=== PATIENT | male | born 1960 | race Caucasian/White ===

== ENCOUNTER → 2021-06-27 | Outpatient (CLI) | payer BC, MEDICARE ==
--- NOTE | 2021-06-27 12:27 | XR ---
Left knee HISTORY: Left knee pain 2 views of left knee correlated prior exam 04/25/2016 Marginal spurring is present in the medial compartment with some joint space loss. Marginal spurring again noted the patellofemoral joint. Suprapatellar increased density may represent a small joint eff usion. Alignment is maintained. Calcification present along the patellar tendon near the insertion sh ows a similar appearance, is a somewhat fragmented well-corticated bone conglomeration. Question some chondrocalcinosis. IMPRESSION: Osteoarthritis, consider crystal deposition arthropathy, additional findings above, findi ngs similar to prior exam. Possible joint effusion.
--- NOTE | 2021-06-27 12:32 | XR ---
right Shoulder HISTORY: Right shoulder pain 2 views of the right shoulder There is arthropathy change of the common clavicular joint, the right humeral head shows a sclerotic appearance with subchondral geode formation suspected, there is remodeling present with sclerosis pre sent at the bony labrum, hypertrophic change of the humeral head medially. No evident fracture or dis location. Right lung apex as visualized is normal. IMPRESSION: Arthropathy change as described. These could represent crystal deposition arthropathy rat her than osteoarthritis.
== END | disposition home or self-care (01) ==
LOC: RADXRMAIN 10:10
PROVIDERS: ATTEND Internal Medicine
DX: M17.12 Unilateral primary osteoarthritis, left knee (principal); M19.011 Primary osteoarthritis, right shoulder

== ENCOUNTER → 2021-12-11 | Outpatient (CLI) | payer BC, MEDICARE ==
--- NOTE | 2021-12-12 02:58 | MR ---
EXAMINATION TYPE: MR knee LT wo con DATE OF EXAM: 12/11/2021 COMPARISON: None HISTORY: Left knee pain. Multiplanar multiecho imaging of the left knee without contrast. There is knee joint effusion. The anterior and posterior cruciate ligaments are intact. There is hype rtrophic spurring of the femoral and tibial condyles. There is mild lateral joint space narrowing. Th e collateral ligaments are intact. There is small cortical defect in the anterior and posterior horns of the lateral meniscus extending to the inferior surface. The medial meniscus appears fairly normal. There is no evidence of a fractur e. I see no bony destructive process. Patella is intact. IMPRESSION: No evidence of ligament tear. Small vertical tears of the anterior and posterior horns of the lateral meniscus. Mild osteoarthritis. Moderate knee joint effusion.
== END | disposition home or self-care (01) ==
LOC: RADMRIMAIN 18:57
PROVIDERS: ATTEND Orthopaedic Surgery
DX: M17.12 Unilateral primary osteoarthritis, left knee (principal); M23.352 Other meniscus derangements, posterior horn of lateral meniscus, left knee

== ENCOUNTER → 2023-01-30 | Outpatient (CLI) | payer BC, MEDICARE ==
--- NOTE | 2023-01-30 10:29 | XR ---
EXAM TYPE: LUMBAR SPINE X RAY SERIES COMPARISON: 07/14/2015 HISTORY: Low back pain TECHNIQUE: 4 views are submitted. FINDINGS: Alignment is anatomic. The pedicles are intact. The transverse processes are intact. Chronic appea ring mild wedge deformity L1 and superior endplate deformity L3. There is multilevel moderate to shelby re degenerative disc disease with grade 1 anterolisthesis L4 on L5 and L5 and S1. Multilevel severe f acet arthropathy. IMPRESSION: 1. Multilevel severe degenerative disc disease and facet arthropathy and grade 1 anterolisthesis of L 4 on L5 and L5 on S1. Retrolisthesis of L2 to relative to L3. 2. There mild compression deformities of L1 and L3 of indeterminate age likely chronic. Correlate cli nically.
== END | disposition home or self-care (01) ==
LOC: LABWHC1 09:42
PROVIDERS: ATTEND Physical Medicine & Rehabilitation
DX: M43.16 Spondylolisthesis, lumbar region (principal); M47.816 Spondylosis without myelopathy or radiculopathy, lumbar region; M51.36 Other intervertebral disc degeneration, lumbar region; M48.56XA Collapsed vertebra, not elsewhere classified, lumbar region, initial encounter for fracture
CPT/HCPCS: 72110

== ENCOUNTER 2024-02-21 11:17 | Emergency (ER) | payer BC, MEDICARE ==
[2024-02-21 11:25] VITALS: RESP 18; TEMP 98.2
--- NOTE | 2024-02-21 12:07 | ED ---
Fall HPI - General Chief Complaint: Extremity Injury, Lower Stated Complaint: Fall, Right knee injury Time Seen by Provider: 02/21/24 11:42 Source: patient, RN notes reviewed Mode of arrival: ambulatory Limitations: no limitations - History of Present Illness Initial Comments: This is a 63-year-old male who presents to the emergency department for a fall. Patient states that last night he went to step over his dog and his dog stood up causing him to fall. He fell on his right knee and then went into a wall, injuring his back. He has developed bruising over the right lower back. Also states that his knee appears swollen and is having difficulty ambulating and moving the leg. He tried taking ibuprofen without relief in symptoms. MD Complaint: fall - Related Data Home Medications Medication Instructions Recorded Confirmed lisinopriL 30 mg PO DAILY 03/21/15 02/21/24 Omeprazole [PriLOSEC] 20 mg PO DAILY 02/21/24 02/21/24 Simvastatin [Zocor] 40 mg PO DAILY 02/21/24 02/21/24 atenoloL [Tenormin] 50 mg PO DAILY 02/21/24 02/21/24 tadalafiL [Cialis] 5 mg PO DAILY 02/21/24 02/21/24 tiZANidine [Zanaflex] 4 mg PO Q8HR PRN 02/21/24 02/21/24 Previous Rx's Medication Instructions Recorded HYDROcodone/APAP 5-325MG [[place] 1 tab PO Q6HR PRN 3 Days #12 tab 02/21/24 5-325] Lidocaine 5% Patch [Lidoderm 5% 1 patch TOPICAL DAILY PRN #30 patch 02/21/24 Patch] Naproxen Sodium 550 mg PO BID PRN #30 tablet 02/21/24 Allergies Allergy/AdvReac Type Severity Reaction Status Date / Time No Known Allergies Allergy Verified 02/21/24 12:06 Review of Systems ROS Statement: Those systems with pertinent positive or pertinent negative responses have been documented in the HPI. ROS Other: All systems not noted in ROS Statement are negative. Past Medical History Past Medical History: Hyperlipidemia, Hypertension, Osteoarthritis (OA), Rheumatoid Arthritis (RA) Additional Past Medical History / Comment(s): fractured back History of Any Multi-Drug Resistant Organisms: None Reported Past Surgical History: Joint Replacement, Orthopedic Surgery Additional Past Surgical History / Comment(s): hips and knees Past Psychological History: Anxiety, Depression Smoking Status: Never smoker Past Alcohol Use History: None Reported Past Drug Use History: None Reported General Exam Limitations: no limitations General appearance: alert, in no apparent distress Head exam: Present: atraumatic, normocephalic, normal inspection Respiratory exam: Present: normal lung sounds bilaterally. Absent: respiratory distress, wheezes, rales, rhonchi, stridor Cardiovascular Exam: Present: regular rate, normal rhythm, normal heart sounds. Absent: systolic murmur, diastolic murmur, rubs, gallop, clicks Extremities exam: Present: other (Swelling and tenderness to the right knee. Range of motion limited by pain. 2+ DP and PT pulses.) Back exam: Present: other (Swelling, ecchymosis, and tenderness to the right lower back) Neurological exam: Present: alert, oriented X3, CN II-XII intact Psychiatric exam: Present: normal affect, normal mood Course Vital Signs 02/21/24 02/21/24 02/21/24 11:19 13:57 15:32 Temperature 98.2 F Pulse Rate 57 L 50 L 55 L Respiratory 18 18 18 Rate Blood Pressure 193/86 175/90 180/90 O2 Sat by Pulse 97 99 99 Oximetry Medical Decision Making - Medical Decision Making This is a 63-year-old male who presents to the emergency department for right knee pain and lower back pain after a fall. Was pt. sent in by a medical professional or institution? @ -No Did you speak to anyone other than the patient for history? @ -No Did you review nursing and triage notes? @ -Yes, and I agree, it is accurate with regards to the patient's symptoms. Were old charts reviewed? @ -No Differential Diagnosis? @ -Differential Musculoskeletal: Muscular strain, contusion, ligament sprain, fracture, arthritis, septic arthritis, bursitis, cellulitis, muscle spasm, nerve compression, DVT, arterial occlusion, herpes zoster, electrolyte abnormality, tumor.... This is not meant to be in all inclusive list EKG interpreted by me (3pts min.)? @ -Not obtained X-rays interpreted by me (1pt min.)? @ -X-ray of the right knee obtained. My interpretation identifies no acute fractures. CT interpreted by me (1pt min.)? @ -CT scan of the lumbar spine obtained. My interpretation identifies no acute fractures. U/S interpreted by me (1pt. min.)? @ -None What testing was considered but not performed? (CT, X-rays, U/S, labs)? Why? @ -None What meds were considered but not given? Why? @ -None Did you discuss the management of the patient with other professionals? @ -No Did you reconcile home meds? @ -No Was smoking cessation discussed for >3mins.? @ -No Was critical care preformed (if so, how long)? @ -No Were there social determinants of health that impacted care today? How? (Homelessness, low income, unemployed, alcoholism, drug addiction, transportation, low edu. Level, literacy, decrease access to med. care, intermediate, rehab)? @ -No Was there de-escalation of care discussed even if they declined? (Discuss DNR or withdrawal of care, Hospice)? @ -No What co-morbidities impacted this encounter? (DM, HTN, Smoking, COPD, CAD, Cancer, CVA, Hep., AIDS, mental health diagnosis, sleep apnea, morbid obesity)? @ -Osteoarthritis, rheumatoid arthritis Was patient admitted / discharged? @ -Discharged. X-ray of the right knee and CT scan of the lumbar spine obtained revealing no acute process. Symptoms managed in the emergency department. Prescription for naproxen, [place], and lidocaine patches provided with dosing instructions reviewed. Otherwise advised follow-up with his primary care provider. Undiagnosed new problem with uncertain prognosis? @ -None Drug Therapy requiring intensive monitoring for toxicity (Heparin, Nitro, Insulin, Cardizem)? @ -None Were any procedures done? @ -None Diagnosis/symptom? @ -Fall, right knee pain, low back pain Acute, or Chronic, or Acute on Chronic? @ -Acute Uncomplicated (without systemic symptoms) or Complicated (systemic symptoms)? @ -Uncomplicated Side effects of treatment? @ -None Exacerbation, Progression, or Severe Exacerbation] @ -Not applicable Poses a threat to life or bodily function? @ -No Return precautions reviewed in depth, the patient is instructed to return to the emergency department with any new, worsening, or concerning symptoms. Patient verbalized understanding. This case was discussed in detail with the attending ED physician, Dr. Riggs. Presentation, findings, and treatment plan discussed in detail as well. - Radiology Data Radiology results: report reviewed, image reviewed Disposition Clinical Impression: Fall, Back pain, Right knee pain Disposition: HOME SELF-CARE Instructions (If sedation given, give patient instructions): Back Pain (ED) Additional Instructions: Return to the emergency department with any new, worsening, or concerning symptoms. Take the Naproxen twice daily as needed with Tylenol. Take the [place] sparingly when your pain is the most severe. You can also apply the lidocaine patches daily. Follow up with your primary care provider in 1-2 days. Prescriptions: Lidocaine 5% Patch [Lidoderm 5% Patch] 1 patch TOPICAL DAILY PRN #30 patch PRN Reason: Pain Naproxen Sodium 550 mg PO BID PRN #30 tablet PRN Reason: Pain HYDROcodone/APAP 5-325MG [[place] 5-325] 1 tab PO Q6HR PRN 3 Days #12 tab PRN Reason: Pain Is patient prescribed a controlled substance at d/c from ED?: Yes When asked, does pt state using other controlled substances?: No If prescribed controlled substance>3 days was MAPS reviewed?: Prescribed <3 Days Referrals: Courtney Cantor MD [Primary Care Provider] - 1-2 days Time of Disposition: 15:15
[2024-02-21] MEDS: KETOROLAC 15 MG/ML 1 ML VIAL IVP STA (12:34)
[2024-02-21] MEDS: MORPHINE SULFATE 4 MG/ML SYRINGE IVP STA (12:35)
--- NOTE | 2024-02-21 12:37 | XR ---
EXAMINATION TYPE: XR knee complete RT DATE OF EXAM: 02/21/2024 12:00 PM CLINICAL INDICATION:Male, 63 years old with history of Fall; COMPARISON: None. TECHNIQUE: XR knee complete RT; examined in Frontal, lateral and oblique projections. FINDINGS: Status post total knee arthroplasty changes with hardware in appropriate alignment and in tact. No evidence of fracture. Large osteophytes/postsurgical change posterior to the tibia on latera l view. IMPRESSION: Status post total knee arthroplasty changes with hardware intact and appropriate alignment. No fractu res identified.
[2024-02-21] MEDS: HYDROmorphone 1 MG/ML 1 ML SYRINGE IVP STA (13:55)
--- NOTE | 2024-02-21 15:09 | CT ---
EXAMINATION TYPE: CT lumbar spine wo con DATE OF EXAM: 02/21/2024 12:16 PM COMPARISON: 05/04/2011 HISTORY: Fall, Hematoma CT DLP: 1220.4 mGycm Automated exposure control for dose reduction was used. Unenhanced CT of the lumbar spine was performed. Bone and soft tissue window settings are submitted as well as coronal and sagittal reconstructions. Technique: CT imaging of the spine with sagittal coronal reformats. FINDINGS:. Grade 1 anterolisthesis of L4 and L5. Severe degeneration changes throughout the spine wit h osteophyte formation and disc space narrowing. L1-L2: Severe degenerative disc disease with vacuum disc noted. Posterior disc bulges effacing ventra l thecal sac and mild central stenosis. L2-L3: Normal moderate to severe degenerative disc space narrowing and posterior disc bulge. Effaces the ventral thecal sac mild central stenosis without disc herniation. . L3-L4:Normal disc space height. No disc herniation protrusion or central stenosis. No facet joint a rthropathy. No evidence for foraminal encroachment. L4-L5: Normal disc space height. No disc herniation protrusion with mild central stenosis present. N o facet joint arthropathy. No evidence for foraminal encroachment. L5-S1: Moderate degenerative disc space narrowing without herniation of protrusion. No central stenos is. Right hip fixation hardware partially visualized and intact. IMPRESSION: 1. No evidence of spinal fracture. 2. No evidence for hematoma. 3. Multilevel degeneration disc disease cervical spine with varying degrees of spinal canal and neur al foraminal stenosis.
[2024-02-21 15:33] VITALS: BP 180/90; PULSE 55
== END 2024-02-21 15:33 | disposition home or self-care (01) ==
LOC: EC 11:17
DX: M25.561 Pain in right knee (principal); M48.061 Spinal stenosis, lumbar region without neurogenic claudication; M51.36 Other intervertebral disc degeneration, lumbar region; W18.30XA Fall on same level, unspecified, initial encounter
CPT/HCPCS: 73562; 72131; 99284; 96374; 96375 ×2; J2270; J1170; J1885

== ENCOUNTER 2025-03-17 15:51 | Emergency (ER) | payer BC, MEDICARE ==
--- NOTE | 2025-03-17 16:23 | ED ---
Wound/Laceration HPI - General Chief Complaint: Wound/Laceration Stated Complaint: L Arm Laceration Time Seen by Provider: 03/17/25 16:04 Source: patient, RN notes reviewed Mode of arrival: ambulatory Limitations: no limitations - History of Present Illness Initial Comments: This is a 64-year-old male with history including hypertension, hyperlipidemia, OA and RA presenting for left elbow laceration. Patient states he was walking his [email or web address] when they took off suddenly, pulling the leashes he was holding and thrusting him into foliage, lacerating his left elbow. Patient denies striking head, loss of consciousness, headache, neck pain, dizziness or any other significant injury. States he is unsure of tetanus vaccination status . Onset/Timin -: minutes(s) Location: face Extremity Location: Left: Elbow Place: outdoors Patient Tetanus UTD: No Context: accidental, fall Associated Symptoms: suspect foreign body present Treatments Prior to Arrival: bandage - Related Data Home Medications Medication Instructions Recorded Confirmed lisinopriL 30 mg PO DAILY 03/21/15 02/21/24 Omeprazole [PriLOSEC] 20 mg PO DAILY 02/21/24 02/21/24 Simvastatin [Zocor] 40 mg PO DAILY 02/21/24 02/21/24 atenoloL [Tenormin] 50 mg PO DAILY 02/21/24 02/21/24 tadalafiL [Cialis] 5 mg PO DAILY 02/21/24 02/21/24 tiZANidine [Zanaflex] 4 mg PO Q8HR PRN 02/21/24 02/21/24 Previous Rx's Medication Instructions Recorded HYDROcodone/APAP 5-325MG [[place] 1 tab PO Q6HR PRN 3 Days #12 tab 02/21/24 5-325] Lidocaine 5% Patch [Lidoderm 5% 1 patch TOPICAL DAILY PRN #30 patch 02/21/24 Patch] Naproxen Sodium 550 mg PO BID PRN #30 tablet 02/21/24 Cephalexin [Keflex] 500 mg PO Q6HR 1 Days #12 cap 03/17/25 Allergies Allergy/AdvReac Type Severity Reaction Status Date / Time No Known Allergies Allergy Verified 03/17/25 16:01 Review of Systems ROS Statement: Those systems with pertinent positive or pertinent negative responses have been documented in the HPI. ROS Other: All systems not noted in ROS Statement are negative. Past Medical History Past Medical History: Hyperlipidemia, Hypertension, Osteoarthritis (OA), Rheumatoid Arthritis (RA) Additional Past Medical History / Comment(s): fractured back History of Any Multi-Drug Resistant Organisms: None Reported Past Surgical History: Joint Replacement, Orthopedic Surgery Additional Past Surgical History / Comment(s): hips and knees Past Psychological History: Anxiety, Depression Smoking Status: Never smoker Past Alcohol Use History: None Reported Past Drug Use History: None Reported General Exam Limitations: no limitations General appearance: alert, in no apparent distress Head exam: Present: normocephalic, normal inspection. Absent: atraumatic (Mild left chin contusion/abrasion without damage to dentition/mandible, crepitus, deformity, significant TTP.) Eye exam: Present: normal appearance, PERRL, EOMI, periorbital tenderness (Positive mild left superior periorbital TTP with associated abrasion and no obvious crepitus, deformity, bleeding. Negative raccoon eyes). Absent: scleral icterus, conjunctival injection, periorbital swelling Pupils: Present: normal accommodation ENT exam: Present: normal exam, mucous membranes moist Neck exam: Present: normal inspection. Absent: tenderness, meningismus, lymphadenopathy Respiratory exam: Present: normal lung sounds bilaterally. Absent: respiratory distress, wheezes, rales, rhonchi, stridor Cardiovascular Exam: Present: regular rate, normal rhythm, normal heart sounds. Absent: systolic murmur, diastolic murmur, rubs, gallop, clicks GI/Abdominal exam: Present: soft, normal bowel sounds. Absent: distended, tenderness, guarding, rebound, rigid Extremities exam: Present: full ROM (FROM of left upper extremity with flexion/extension of elbow along with supination/pronation.), normal capillary refill, other (Left upper extremity distal neurovascular and motor function intact. Radial pulse +2). Absent: tenderness, pedal edema, joint swelling, calf tenderness Back exam: Present: normal inspection, full ROM. Absent: vertebral tenderness (Negative cervical spine or vertebral tenderness, crepitus, step-off) Neurological exam: Present: alert, oriented X3, CN II-XII intact Psychiatric exam: Present: normal affect, normal mood Skin exam: Present: warm, dry, intact, normal color. Absent: rash Course Vital Signs 03/17/25 03/17/25 03/17/25 15:55 17:05 18:01 Temperature 98.0 F 98.1 F Pulse Rate 64 50 L 52 L Respiratory 15 20 18 Rate Blood Pressure 184/100 152/81 150/82 O2 Sat by Pulse 97 98 99 Oximetry Procedures - Laceration Laceration #1 Consent Obtained: verbal consent Indication: laceration Site: upper extremity Size (cm): 5 Description: linear, irregular Depth: simple, single layer Anesthetic Used: lidocaine 1%, with epi Anesthesia Technique: local infiltration Amount (mls): 10 Pre-repair: wound explored, irrigated extensively Type of Sutures: nylon Size of Sutures: 5-0 Number of Sutures: 9 Technique: running Patient Tolerated Procedure: well, no complications Medical Decision Making - Medical Decision Making Was pt. sent in by a medical professional or institution (Dr. PA, LOAN AUDITOR, urgent care, hospital, or skilled nursing...) When possible be specific @ -No Did you speak to anyone other than the patient for history (EMS, parent, family, police, friend...)? What history was obtained from this source @ -No Did you review nursing and triage notes (agree or disagree)? Why? @ -I reviewed and agree with nursing and triage notes Were old charts reviewed (outside hosp., previous admission, EMS record, old EKG, old radiological studies, urgent care reports/EKG's, skilled nursing records)? Report findings @ -No old charts were reviewed Differential Diagnosis (chest pain, altered mental status, abdominal pain women, abdominal pain men, vaginal bleeding, weakness, fever, dyspnea, syncope, headache, dizziness, GI bleed, back pain, seizure, CVA, palpatations, mental health, musculoskeletal)? @ -Differential Musculoskeletal Muscular strain, contusion, ligament sprain, fracture, arthritis, septic arthritis, bursitis, cellulitis, muscle spasm, nerve compression, DVT, arterial occlusion, herpes zoster, electrolyte abnormality, tumor.... This is not meant to be in all inclusive list EKG interpreted by me (3pts min.). @ -Not done X-rays interpreted by me (1pt min.). @ -Left elbow x-ray shows no evidence of acute fracture, dislocation or obvious radiopaque foreign body. Posterior elbow soft tissue laceration noted. CT interpreted by me (1pt min.). @ -None done U/S interpreted by me (1pt. min.). @ -None done What testing was considered but not performed or refused? (CT, X-rays, U/S, labs)? Why? @ -None What meds were considered but not given or refused? Why? @ -None Did you discuss the management of the patient with other professionals (professionals i.e. DrVirgie, PA, LOAN AUDITOR, lab, RT, psych nurse, addiction social worker, theatrical trouper, teacher, fundraising officer, caser up)? Give summary @ -No Was smoking cessation discussed for >3mins.? @ -No Was critical care preformed (if so, how long)? @ -No Were there social determinants of health that impacted care today? How? (Homelessness, low income, unemployed, alcoholism, drug addiction, transportation, low edu. Level, literacy, decrease access to med. care, shelter, rehab)? @ -No Was there de-escalation of care discussed even if they declined (Discuss DNR or withdrawal of care, Hospice)? DNR status @ -No What co-morbidities impacted this encounter? (DM, HTN, Smoking, COPD, CAD, Cancer, CVA, ARF, Chemo, Hep., AIDS, mental health diagnosis, sleep apnea, morbid obesity)? @ -None Was patient admitted / discharged? Hospital course, mention meds given and route, prescriptions, significant lab abnormalities, going to OR and other pertinent info. @ -Left elbow x-ray shows no evidence of acute fracture, dislocation or obvious radiopaque foreign body. Posterior elbow soft tissue laceration noted. Patient given IM tetanus and initial dose of p.o. Keflex. Laceration sutured under sterile conditions. Keflex regimen sent to patient's pharmacy and suture care instructions provided. Advise follow-up with medical facility in 10-7 days for suture removal. Discussed patient with Dr. Gutierres. Undiagnosed new problem with uncertain prognosis? @ -No Drug Therapy requiring intensive monitoring for toxicity (Heparin, Nitro, Insulin, Cardizem)? @ -No Were any procedures done? @ -Laceration sutured under sterile conditions. See procedure note. Diagnosis/symptom? @ -Left elbow laceration, facial contusion Acute, or Chronic, or Acute on Chronic? @ -Acute Uncomplicated (without systemic symptoms) or Complicated (systemic symptoms)? @ -Uncomplicated Side effects of treatment? @ -No Exacerbation, Progression, or Severe Exacerbation? @ -No Poses a threat to life or bodily function? How? (Chest pain, [place], [place], pneumonia, PE, COPD, DKA, ARF, appy, cholecystitis, CVA, Diverticulitis, Homicidal, Suicidal, threat to staff... and all critical care pts) @ -No Disposition Clinical Impression: Laceration Disposition: HOME SELF-CARE Condition: Good Instructions (If sedation given, give patient instructions): Care For Your Stitches (ED) Additional Instructions: Keep sutured area clean with antibacterial soap and water at least twice daily along with dressing change. Follow-up with medical facility in 1014 days for suture removal. Prescriptions: Cephalexin [Keflex] 500 mg PO Q6HR 1 Days #12 cap Is patient prescribed a controlled substance at d/c from ED?: No Referrals: Courtney Cantor MD [Primary Care Provider] - 1-2 days Time of Disposition: 17:47
[2025-03-17] MEDS: LIDOCAINE 1%-EPI 1:100,000 20 ML VIAL SQ STA (16:25)
[2025-03-17] MEDS: DIPH,PERTUS(ACELL)TETVAC-LF 0.5 ML VIAL IM ONE (16:25)
[2025-03-17] MEDS: CEPHALEXIN 500 MG CAP PO STA (16:25)
--- NOTE | 2025-03-17 16:57 | XR ---
EXAMINATION TYPE: XR elbow complete LT DATE OF EXAM: 03/17/2025 4:48 PM INDICATION: Patient age:Male; 64 years old; Reason for study: Fall into the foliage, laceration; PHH. pain COMPARISON: None TECHNIQUE: The left elbow was examined in AP, lateral, and oblique projections. FINDINGS: No evidence of any acute osseous pathology or joint dislocation. Degenerative changes with medial epicondyle accessory ossicle. No evidence of joint effusion is present. Posterior elbow soft t issue defect with gas within the subcutaneous tissues. Tiny posterior elbow olecranon enthesophyte. IMPRESSION: 1. No evidence of acute fracture. 2. Posterior elbow soft tissue laceration. [facility], , 03/17/2025 4:54 PM
[2025-03-17 18:02] VITALS: BP 150/82; PULSE 52; RESP 18; TEMP 98.1
== END 2025-03-17 18:03 | disposition home or self-care (01) ==
LOC: EC 15:51
DX: S51.012A Laceration without foreign body of left elbow, initial encounter (principal); Z23 Encounter for immunization; W18.30XA Fall on same level, unspecified, initial encounter
CPT/HCPCS: 12002; 90471; 90715; 99283